=== PATIENT | male | born 1985 | race Caucasian/White ===

== ENCOUNTER 2024-11-25 09:50 | Inpatient (IN) | payer BC ==
[2024-11-25] MEDS ORDERED: Ondansetron PF 4 MG/2 ML Vial ONE (10:02)
[2024-11-25 10:26] LABS: #Basophils 0.03 10x3/uL (0.0-0.2); %Basophils 0.6 % (0.0-1.0); %Eosinophils 0.6 % (0.0-10.0); %Lymphocytes 38.9 % (21.0-51.0); %Monocytes 6.6 % (0.0-10.0); %Neutrophils 53.1 % (42.0-75.0); Hematocrit 45.6 % (42.0-52.0); Hemoglobin 16.6 g/dL (14.0-18.0); Mean Corpuscular HGB CONC 36.4 g/dL (32.0-36.0); Mean Corpuscular Hemoglobin 31.4 pg (27.0-31.0); Mean Corpuscular Volume 86.2 fL (78.0-98.0); Mean Platelet Volume 9.5 fL (7.4-10.4); Platelet Count 148 10x3/uL (130-400); RBC Distribution Width 11.6 % (11.5-14.5); Red Blood Cell (RBC) Count 5.29 mill/uL (4.70-6.10)
[2024-11-25 10:49] LABS: ALT (SGPT) 26 U/L (8-55); AST (SGOT) 33 U/L (5-34); Albumin 4.6 g/dL (3.5-5.0); Alkaline Phosphatase 62 U/L (40-110); Anion Gap 16 mmol/L (10-20); BUN (Urea Nitrogen) 14 mg/dL (8.9-20.6); Bilirubin, Total 0.7 mg/dL (0.2-1.2); Calc. Creatinine Clearance 0 mL/min (70-130); Calcium 9.1 mg/dL (7.8-10.44); Carbon Dioxide 22 mmol/L (22-29); Chloride 106 mmol/L (98-107); Estimated GFR 91; Globulin 3.3 g/dL (2.4-3.5); Glucose 116 mg/dL (70-105); Potassium 4.1 mmol/L (3.5-5.1); Protein, Total 7.9 g/dL (6.0-8.3); Sodium 140 mmol/L (136-145)
[2024-11-25] MEDS ORDERED: Lidocaine 1% PF 5 ML VIAL ONE (11:02)
[2024-11-25] MEDS ORDERED: Morphine 2 MG/ML VIAL SLOW IVP PRN (11:23)
[2024-11-25] MEDS ORDERED: Ipratropium/Albuterol 3 ML NEB NEB PRN (11:23)
[2024-11-25 11:43] LABS: PTT 27.8 sec (22.9-36.1); Prothrombin Time 12.7 sec (12.0-14.7)
[2024-11-25 11:53] LABS: Acetaminophen Less than 10 mcg/mL (Less than 10); Alcohol 127.3 mg/dL (Less than 10); Salicylate Less than 8.0 mg/dL (Less than 8.0)
[2024-11-25] MEDS ORDERED: Morphine 4 MG/ML VIAL ONE (11:55)
[2024-11-25] MEDS: Sodium Chloride 0.9% 1,000 ML IV SCH (15:26)
[2024-11-25] MEDS: Ondansetron PF 4 MG/2 ML Vial IVP PRN (15:26)
[2024-11-25 15:52] VITALS: BMI 24.2
[2024-11-25] MEDS: Acetaminophen 325 MG TAB PO SCH (16:48)
[2024-11-25] MEDS: Acetaminophen/Codeine 30-300mg Tablet PO PRN (20:02)
[2024-11-26 05:50] LABS: #Basophils 0.04 10x3/uL (0.0-0.2); %Basophils 0.6 % (0.0-1.0); %Eosinophils 1.4 % (0.0-10.0); %Lymphocytes 27.6 % (21.0-51.0); %Monocytes 11.4 % (0.0-10.0); %Neutrophils 58.8 % (42.0-75.0); Hematocrit 42.9 % (42.0-52.0); Hemoglobin 15.4 g/dL (14.0-18.0); Mean Corpuscular HGB CONC 35.9 g/dL (32.0-36.0); Mean Corpuscular Hemoglobin 31.7 pg (27.0-31.0); Mean Corpuscular Volume 88.3 fL (78.0-98.0); Mean Platelet Volume 9.8 fL (7.4-10.4); Platelet Count 139 10x3/uL (130-400); RBC Distribution Width 11.6 % (11.5-14.5); Red Blood Cell (RBC) Count 4.86 mill/uL (4.70-6.10)
[2024-11-26 05:52] LABS: Anion Gap 11 mmol/L (10-20); BUN (Urea Nitrogen) 14 mg/dL (8.9-20.6); Calc. Creatinine Clearance 107 mL/min (70-130); Carbon Dioxide 26 mmol/L (22-29); Chloride 105 mmol/L (98-107); Estimated GFR 92; Glucose 99 mg/dL (70-105); Potassium 4.4 mmol/L (3.5-5.1); Sodium 138 mmol/L (136-145)
[2024-11-26 08:11] VITALS: TEMP 98
[2024-11-26 11:30] VITALS: BP 131/78
== END 2024-11-26 11:30 | disposition home or self-care (01) | DRG 84 ==
LOC: ERS 09:50 → ERHOLD 12:02 → IMCU/EMU 14:31 → SURG B 22:58
PROVIDERS: ADMIT Surgery; ATTEND Surgery
PROC: 0HQ0XZZ Repair Scalp Skin, External Approach (ICD-10-PCS; principal; 2024-11-25)
DX: S06.309A Unspecified focal traumatic brain injury with loss of consciousness of unspecified duration, initial encounter (principal); S02.31XA Fracture of orbital floor, right side, initial encounter for closed fracture; V86.55XA Driver of 3- or 4- wheeled all-terrain vehicle (ATV) injured in nontraffic accident, initial encounter; Y93.I9 Activity, other involving external motion; Y92.89 Other specified places as the place of occurrence of the external cause; S02.40CA Maxillary fracture, right side, initial encounter for closed fracture; R40.2362 Coma scale, best motor response, obeys commands, at arrival to emergency department; R40.2142 Coma scale, eyes open, spontaneous, at arrival to emergency department; R40.2252 Coma scale, best verbal response, oriented, at arrival to emergency department
CPT/HCPCS: 12002; 36415; 70450; 70486; 71045; 72125; 72170; 80048; 80053; 80307; 85025; 85610; 85730; 96374; 96375; G0390; J2272; J2405; J7030

== ENCOUNTER 2024-12-10 12:36 | Outpatient (CLI) | payer BC | END 2024-12-10 12:37 | disposition home or self-care (01) | LOC: CT 12:36 | PROVIDERS: ATTEND Neurological Surgery | DX: S06.349D Traumatic hemorrhage of right cerebrum with loss of consciousness of unspecified duration, subsequent encounter (principal); S02.92XD Unspecified fracture of facial bones, subsequent encounter for fracture with routine healing | CPT/HCPCS: 70450 ==